=== PATIENT | male | born 1980 | race Caucasian/White ===

== ENCOUNTER 2016-09-29 08:21 | Emergency (ER) | payer OTHER ==
[2016-09-29 08:40] VITALS: BP 134/87; PULSE 71; RESP 16; O2SAT 97
--- NOTE | 2016-09-29 08:44 | UCPHY ---
H & P Time Seen by Provider: 09/29/16 08:34 Patient Type: New HPI/ROS: CHIEF COMPLAINT: Right sinus pain, drainage HPI: The patient is a 36-year-old male with no significant past medical history. He complains of rhinorrhea for approximately the last 2-3 weeks. He was seen by his primary physician 2 weeks ago and prescribed Flonase. The patient reports continued green-yellow sputum from his nose as well as increasing pressure in the right maxillary sinus and right ear. He denies fever. He denies trauma. He denies vision change. REVIEW OF SYSTEMS: Aside from elements discussed in the HPI, a comprehensive 10-point review of systems was reviewed and is negative. PMH: None significant. SOCIAL HISTORY: Denies drug or alcohol abuse. FAMILY HISTORY: Reviewed, noncontributory PHYSICAL EXAM: General:Patient is alert, in no acute distress. ENT:Eyes are normal to inspection. ENT inspection normal. Right TM is normal to inspection. Mild tenderness to palpation is present over the right maxillary sinus. EOMI. Neck: Normal inspection. Full range of motion. Respiratory:No respiratory distress. Breath sounds normal bilaterally. Neuro: Oriented x3. Normal motor function. Normal sensory function. Smoking Status: Never smoked Constitutional: Initial Vital Signs Heart Rate 71 09/29/16 08:38 Respiratory Rate 16 09/29/16 08:38 Blood Pressure 134/87 H 09/29/16 08:38 O2 Sat (%) 97 09/29/16 08:38 O2 Delivery Mode Room Air Allergies/Adverse Reactions: No Known Allergies Allergy (Unverified 09/29/16 08:40) Home Medications: Medication Instructions Recorded Amoxicillin/Clavulanate Pot 875 mg PO BID #14 tab 09/29/16 [Augmentin 875Mg] Flonase Nasal [place] 09/29/16 MDM/Departure - [facility] ED Course/Re-evaluation: This patient presents with what sounds like acute sinusitis. As he has tried several weeks of conservative therapy I think would be reasonable to step up to a course of Augmentin. He declined any imaging at this time. I see no signs of otitis media, shingles, ocular problem. Teeth appear normal, but this also could represent a dental source of pain. - Depart Disposition: Home, Routine, Self-Care Clinical Impression: Acute sinusitis Condition: Good Instructions: Sinusitis (ED) Additional Instructions: Follow up with an mailing specialist within 1 week if symptoms do not improve. Also try following up with her dentist ensure that this is not a tooth problem. Return to the urgent care or emergency department for fever, severe pain, change in vision, difficulty swallowing or other concerns. Prescriptions: Amoxicillin/Clavulanate Pot [Augmentin 875Mg] 875 mg PO BID #14 tab Referrals: Aramis Pickering MD [Medical Doctor] - As per Instructions - PQRS PQRS Measurement: 134: Depression screening and followup, PRIME MD-PHQ2 (12 years and older) Over the last 2 weeks, how often have you been bothered by any of the following problems? 1. Feeling down, depressed, or hopeless? 2. Little interest or pleasure in doing things? Patient answered no to both 1 and 2 130: Documentation of medications. Reviewed all patient medications, doses, route and frequency. 226: Do you smoke? No. 51: 18 years old and older with diagnosis of COPD, spirometry performance. Spirometry not performed; equipment not available. Patient has no history of COPD 52: 18 years old and older with COPD and symptoms of COPD or FEV1<60% predicted prescribed a B Agonist. Spirometry not performed; equipment not available.
== END 2016-09-29 09:00 | disposition home or self-care (01) ==
LOC: CED 08:21
DX: J01.90 Acute sinusitis, unspecified (principal)
CPT/HCPCS: 99204-PO; G0463-PO